=== PATIENT | female | born 2000 | race Two or more races ===

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

== ENCOUNTER 2023-08-22 11:23 | Emergency (ER) | payer OTHER ==
[2023-08-22 11:29] VITALS: RESP 18; BMI 23.6
[2023-08-22] MEDS ORDERED: ACETAMINOPHEN INJECTION 100 ML IVPB ONE (13:10)
[2023-08-22 13:12] LABS: BASO % 0.6 % (0-2.0); EOS % 0.5 % (0-4.5); HEMATOCRIT 39.4 % (32.4-45.2); HEMOGLOBIN 12.5 GM/dL (10.7-15.3); LYMPH % 22.1 % (8-40); MCH 25.9 pg (25.7-33.7); MCHC 31.8 g/dl (32.0-36.0); MEAN CELL VOLUME 81.4 fl (80-96); MEAN PLT VOLUME 8.5 fl (7.5-11.1); NEUT % 69.8 % (42.8-82.8); PLATELET COUNT 366 10^3/uL (134-434); RBC 4.84 M/mm3 (3.60-5.2); RDW 13.5 % (11.6-15.6); WHITE BLOOD COUNT 9.4 K/mm3 (4.0-10.0)
[2023-08-22] MEDS: SODIUM CHLORIDE 0.9% 500 ML INFUS.BAG IV ONE (13:17)
[2023-08-22] MEDS: ACETAMINOPHEN 1000 MG/100 ML BAG IVPB ONE (13:17)
[2023-08-22 13:21] LABS: INR 1.15 (0.83-1.09); PROTHROMBIN TIME (PATIENT) 13.3 SEC (9.7-13.0)
[2023-08-22 13:24] LABS: ACTIVATED PTT 35.9 SECONDS (25.2-36.5)
[2023-08-22 13:24] LABS: VENOUS BASE EXCESS 0.5 mmol/L (-2-2); VENOUS O2 SATURATION 70.6 % (70-80); VENOUS PCO2 43.2 mmHg (38-52); VENOUS PH 7.391 (7.310-7.410)
[2023-08-22 13:57] LABS: POTASSIUM 4.6 mmol/L (3.5-5.1)
[2023-08-22 14:00] LABS: CALCIUM 9.8 mg/dL (8.5-10.1)
[2023-08-22 14:01] LABS: ALBUMIN 3.7 g/dl (3.4-5.0); BLOOD UREA NITROGEN 10.1 mg/dL (7-18)
[2023-08-22 14:04] LABS: CREATININE 1.1 mg/dL (0.55-1.3)
[2023-08-22 14:05] LABS: BILIRUBIN,TOTAL 0.2 mg/dL (0.2-1)
[2023-08-22 14:27] LABS: EPI CELLS 5 /uL (0-25.1); HYALINE CASTS 1 /uL (0-3.1); PH,URINE 8.5 (5.0-8.0); URINE APPEARANCE CLEAR; URINE BACTERIA 171 /uL (0-1359); URINE BILIRUBIN NEGATIVE (NEGATIVE); URINE COLOR YELLOW; URINE GLUCOSE (UA) NEGATIVE (NEGATIVE); URINE KETONE NEGATIVE (NEGATIVE); URINE LEUK ESTERASE 1+ (NEGATIVE); URINE NITRITE NEGATIVE (NEGATIVE); URINE PROTEIN 2+ (NEGATIVE); URINE RBC 16 /uL (0-23.9); URINE UROBILINOGEN 0.2 mg/dL (0.2-1.0); URINE WBC 121 /uL (0-25.8)
[2023-08-22 17:16] VITALS: BP 129/94; PULSE 88; TEMP 98
== END 2023-08-22 18:37 | disposition home or self-care (01) ==
LOC: JER 11:23
PROC: 3E030NZ Introduction of Analgesics, Hypnotics, Sedatives into Peripheral Vein, Open Approach (ICD-10-PCS; principal; 2023-08-22)
DX: R10.811 Right upper quadrant abdominal tenderness (principal); R10.813 Right lower quadrant abdominal tenderness; G89.29 Other chronic pain; R11.0 Nausea; R50.9 Fever, unspecified; R00.0 Tachycardia, unspecified; N13.30 Unspecified hydronephrosis; Z20.822 Contact with and (suspected) exposure to COVID-19
CPT/HCPCS: 0241U-QW; 36415; 71045-TC-FY; 74177-TC; 80053; 81003; 82803; 83605; 84703; 85025; 85610; 85730; 86850; 86900; 86901; 87040; 87086; 93005; 93010; 99285-25; J0131; Q9967